=== PATIENT | male | born 1935 | race Asian ===

== ENCOUNTER 2023-04-05 21:17 | Inpatient (IN) | payer MEDICARE ==
[~2023-04-05] VITALS: Ht 165.1 cm; Wt 72.6 kg
--- NOTE | 2023-04-05 21:20 | NUR ---
[id number], from snf, c/o sob 88% on 2lpm via NC, 96% on NRB. PLACED IN BED, AAOX4, DYSPNIEC RR- 24 SATURATING AT 97% WITH 3LIT O2 VIA NC. KNOWN HX OF COPD
[2023-04-05] MEDS ORDERED: ALBUTEROL FS 2.5 MG/3 ML VIAL.NEB NEB ONE (21:30)
[2023-04-05] MEDS ORDERED: methylPREDNISolone SOD SUCC 125 MG/2ML VIAL IV ONE (21:30)
[2023-04-05] MEDS ORDERED: methylPREDNISolone SOD SUCC 125 MG/2ML VIAL ONE (21:30)
--- NOTE | 2023-04-05 21:30 | NUR ---
COVID SWAB COLLECTED, SENT TO LAB
[2023-04-05] MEDS ORDERED: ALBUTEROL FS 2.5 MG/3 ML VIAL.NEB ONE (21:33)
--- NOTE | 2023-04-05 21:35 | NUR ---
TOOL FILER HAND AT BEDSIDE
[2023-04-05] MEDS ORDERED: DILTIAZEM HCL 50 MG IV ONE (21:39)
[2023-04-05] MEDS ORDERED: DILTIAZEM HCL 50 MG IV IV ONE (22:00)
[2023-04-05 22:02] LABS: BASOPHILS # (AUTO) 0.1 K/uL (0.0-0.2); BASOPHILS % (AUTO) 0.4 % (0.0-2.0); EOSINOPHILS % (AUTO) 1.9 % (0.0-6.0); HEMATOCRIT 41 % (39-51); HEMOGLOBIN 13.6 g/dL (13.5-17.5); LYMPHOCYTES # (AUTO) 1.5 K/uL (0.8-4.8); LYMPHOCYTES % (AUTO) 9.9 % (20.0-44.0); MEAN CORPUSCULAR HGB CONC 33 g/dl (31.0-36.0); MEAN CORPUSCULAR VOLUME 97 fL (80-96); MONOCYTES # (AUTO) 1.1 K/uL (0.1-1.30); MONOCYTES % (AUTO) 7.7 % (2.0-12.0); NEUTROPHILS # (AUTO) 11.8 K/uL (1.8-8.9); NEUTROPHILS % (AUTO) 80.1 % (43.0-81.0); PLATELET COUNT (AUTO) 325 K/uL (150-450); RED BLOOD CELL COUNT(AUTO) 4.26 MIL/uL (4.5-6.0); WHITE BLOOD COUNT (AUTO) 14.7 K/uL (4.3-11.0)
[2023-04-05 22:10] LABS: CALCIUM, SERUM 9.3 mg/dL (8.5-10.1); CARBON DIOXIDE 27 mmol/L (21-32); CHLORIDE 103 mmol/L (98-107); CREATININE 1.2 mg/dL (0.6-1.3); GLUCOSE 144 mg/dL (74-106); POTASSIUM 3.8 mmol/L (3.5-5.1); SODIUM SERUM 139 mmol/L (136-145); UREA NITROGEN, BLOOD 17 mg/dL (7-18)
[2023-04-05 22:24] LABS: ALANINE AMINOTRANSFERASE 28 U/L (12-78); ALBUMIN 3.7 g/dL (3.4-5.0); ALKALINE PHOSPHATASE 100 U/L (46-116); ASPARTATE AMINOTRANSFERASE 22 U/L (15-37); BILIRUBIN,DIRECT 0.3 mg/dL (0.0-0.2); TOTAL PROTEIN, SERUM 7.4 g/dL (6.4-8.2)
--- NOTE | 2023-04-05 22:37 | NUR ---
URINE SAMPLE SENT TO LAB
--- NOTE | 2023-04-05 23:10 | NUR ---
REPORT GIVEN TO DANIEL TOMAS ROOM 310-2 FOR OLIVIA
--- NOTE | 2023-04-05 23:16 | NUR ---
MRSA SWAB COLLECTED, SENT TO LAB
[2023-04-05 23:28] LABS: BILIRUBIN,URINE NEGATIVE (NEGATIVE); COLOR,URINE YELLOW (YELLOW); LEUKOCYTE ESTERASE ,URINE NEGATIVE (NEGATIVE); NITRITE, URINE NEGATIVE (NEGATIVE); PH,URINE 5.5 (5.0-8.0); PROTEIN,URINE 2+ mg/dl (NEGATIVE); UGLUCOSE NEGATIVE (NEGATIVE); UROBILINOGEN,URINE 0.2 EU/dL (0.2)
[2023-04-05 23:34] LABS: BACTERIA,URINE Rare /HPF (None Seen); SQUAMOUS EPITHELIAL CELL,UR Few /HPF (None Seen); WBC,URINE 0-2 /HPF (0-3)
[2023-04-05] MEDS ORDERED: AZITHROMYCIN 500 MG in IV D5W 250 ML IV STA (23:46)
[2023-04-06] VITALS (7 sets, daily range): BP systolic 133–158; BP diastolic 75–92
[2023-04-06] MEDS ORDERED: CEFTRIAXONE 1GM BAG (ER ONLY) 1 GM/50 ML PIGGYBACK IV ONE
[2023-04-06] MEDS ORDERED: CEFTRIAXONE 1GM BAG (ER ONLY) 50 ML IV ONE (00:20)
--- NOTE | 2023-04-06 00:52 | NUR ---
Pt transfere to room 310-2 via ACLS protocol.
--- NOTE | 2023-04-06 01:30 | NUR ---
INSTRUCTION ASSISTANT PRINCIPALSEAT NAILER NOTE RECEIVED REPORT FROM THOM ARMIJO. PATIENT CAME TO THE UNIT AT AROUND 0050 VIA STRETCHER, ACCOMPANIED BY 2 ER STAFFS. PER REPORT, PATIENT WAS SENT TO THE HOSPITAL D/T SOB SATURATING AT 88% ON 2LPM VIA NASAL CANNULA. DIRECTED TO ROOM 310-2. PATIENT IS ALERT AND ORIENTED X4. ABLE TO MAKE NEEDS KNOWN. AFEBRILE AND NOT IN ANY FORM OF ACUTE DISTRESS. PLACED ON O2 INHALATION VIA NASAL CANNULA AT 3LPM. EXPLAINED ADMISSION PROCESS WHICH INCLUDES SKIN ASSESSMENT WHICH THE PATIENT AGREED. UPON INSPECTION, PATIENT WAS NOTED WITH NON PITTING EDEMA ON BILATERAL FOOT +2. SKIN IS INTACT AND NO OTHER VISIBLE SKIN ISSUES. BELONGINGS WERE CHECKED TOGETHER WITH ASSIGNED CROSSING WATCHMAN AND PATIENT JUST CAME WITH SHIRT AND WATCH. VITALS TAKEN AND RECORDED. ORIENTED TO ENVIRONMENT. SAFETY MEASURES IN PLACE. KEPT BED IN LOCKED AND IN LOW POSITION. SIDE RAILS UP X2. ADVISED TO USE THE CALL LIGHT WHEN IN NEED OF ASSISTANCE.
[2023-04-06] MEDS ORDERED: ACETAMINOPHEN 325 MG TABLET PO PRN (02:30)
[2023-04-06] MEDS ORDERED: ONDANSETRON HCL/PF 4 MG/2 ML VIAL IVP PRN (02:30)
[2023-04-06] MEDS ORDERED: MAG HYDROX/AL HYDROX/SIMETH 30 ML UDC PO PRN (02:30)
[2023-04-06] MEDS ORDERED: Z GUARD REMEDY 4 OZ OINT TP PRN (02:30)
[2023-04-06] MEDS ORDERED: MAGNESIUM HYDROXIDE 30 ML UDC PO PRN (02:30)
[2023-04-06] MEDS ORDERED: ZOLPIDEM TARTRATE 5 MG TABLET PO PRN (02:30)
[2023-04-06] MEDS ORDERED: IPRATROPIUM NEB FS 0.5 MG/2.5 ML AMPUL.NEB NEB PRN (02:30)
[2023-04-06] MEDS ORDERED: hydrALAZINE HCL IV 20 MG VIAL IV PRN (03:00)
[2023-04-06] MEDS ORDERED: AZITHROMYCIN 500 MG VIAL ONE (03:06)
[2023-04-06] MEDS: methylPREDNISolone SOD SUCC 40 MG/ML VIAL IV SCH ×3 (04:25→21:10)
--- NOTE | 2023-04-06 06:28 | NUR ---
CAFE AIDE CLOSING NOTE PATIENT IN BED, ASLEEP BUT EASY TO AROUSE AND RESPONSIVE. ALERT AND ORIENTED X4. ABLE TO COMMUNICATE NEEDS WITH THE STAFFS. AFEBRILE AND NOT IN ANY FORM OF ACUTE DISTRESS. ON O2 INHALATION VIA NASAL CANNULA AT 2LPM. ON TELE MONITORING WITH CURRENT READING OF A-FIB 101. WITH IV ACCESS ON LAC 18G-SL. MEDICATED ORDERED. ON IV ATB, MONITORED FOR ANY ADVERSE REACTION. SAFETY MEASURES IN PLACE. KEPT BED IN LOCKED AND IN LOW POSITION. SIDE RAILS UP X2. ADVISED TO USE THE CALL LIGHT WHEN IN NEED OF ASSISTANCE. ALL NURSING NEEDS ATTENDED. ENDORSED TO INCOMING SHIFT FOR CONTINUITY OF CARE.
[2023-04-06 06:52] LABS: HEMATOCRIT 43 % (39-51); HEMOGLOBIN 13.9 g/dL (13.5-17.5); LYMPHOCYTES # (AUTO) 0.9 K/uL (0.8-4.8); LYMPHOCYTES % (AUTO) 8.1 % (20.0-44.0); MEAN CORPUSCULAR HGB CONC 32 g/dl (31.0-36.0); MEAN CORPUSCULAR VOLUME 95 fL (80-96); MONOCYTES # (AUTO) 0.1 K/uL (0.1-1.30); MONOCYTES % (AUTO) 0.6 % (2.0-12.0); NEUTROPHILS # (AUTO) 10.5 K/uL (1.8-8.9); NEUTROPHILS % (AUTO) 91.3 % (43.0-81.0); PLATELET COUNT (AUTO) 215 K/uL (150-450); RED BLOOD CELL COUNT(AUTO) 4.54 MIL/uL (4.5-6.0); WHITE BLOOD COUNT (AUTO) 11.5 K/uL (4.3-11.0)
[2023-04-06 07:14] LABS: CALCIUM, SERUM 9.5 mg/dL (8.5-10.1); CREATININE 1.1 mg/dL (0.6-1.3); MAGNESIUM 2.3 mg/dL (1.8-2.4); PHOSPHORUS 3.5 mg/dL (2.5-4.9); POTASSIUM 3.7 mmol/L (3.5-5.1)
--- NOTE | 2023-04-06 07:18 | NUR ---
BUNDLER SEASONAL GREENERY OPENING NOTES RECEIVED PATIENT LYING IN BED, A/OX4, ABLE TO MAKE NEEDS KNOWN, DENIES ANY SOB, ON 02 AT 2LPM VIA NASAL CANNULA, BREATHING IS EVEN AND NOT LABORED, PATIENT HAS NOTED WITH NON PITTING EDEMA ON BILATERAL FOOT +2, SKIN IS INTACT AND NO OTHER VISIBLE SKIN ISSUES. 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 KEPT BED IN LOCKED AND IN LOW POSITION. SIDE RAILS UP X2. CALL LIGHT WITHIN EASY REACH, WILL CONTINUE POC. Addendum: 04/06/23 at 0745 by ROCK BRANDIE PINZON RN BUNDLER SEASONAL GREENERY OPENING NOTES RECEIVED PATIENT LYING IN BED, A/OX4, ABLE TO MAKE NEEDS KNOWN, DENIES ANY SOB, ON 02 AT 2LPM VIA NASAL CANNULA, BREATHING IS EVEN AND NOT LABORED, PATIENT HAS NOTED WITH NON PITTING EDEMA ON BILATERAL FOOT +2, SKIN IS INTACT AND NO OTHER VISIBLE SKIN ISSUES. 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 KEPT BED IN LOCKED AND IN LOW POSITION. SIDE RAILS UP X2. CALL LIGHT WITHIN EASY REACH, WILL CONTINUE POC.
[2023-04-06 07:24] LABS: T4 (THYROXINE) 14.5 ug/dL (4.7-13.3); THYROID STIMULATING HORMONE 1.334 uIU/mL (0.358-3.74)
[2023-04-06] MEDS: IPRATROPIUM NEB FS 0.5 MG/2.5 ML AMPUL.NEB NEB SCH ×3 (07:48→20:14)
[2023-04-06] MEDS: ALBUTEROL FS 2.5 MG/3 ML VIAL.NEB NEB SCH ×3 (07:48→20:14)
[2023-04-06] MEDS: LOSARTAN POTASSIUM 50 MG TABLET PO SCH (08:50)
[2023-04-06] MEDS: FUROSEMIDE 20 MG/2 ML VIAL IV SCH ×2 (08:51→16:47)
[2023-04-06] MEDS: PANTOPRAZOLE 40 MG VIAL IV SCH (08:51)
[2023-04-06] MEDS ORDERED: ENOXAPARIN SODIUM 40 MG/0.4 ML DISP.SYRIN SQ SCH (09:00)
[2023-04-06] MEDS ORDERED: MELA5TAB PO (09:37)
[2023-04-06] MEDS ORDERED: IPRA4AER IH (09:37)
[2023-04-06] MEDS ORDERED: PANT40TA2 PO (09:37)
[2023-04-06] MEDS ORDERED: GABA-532 PO (09:37)
[2023-04-06] MEDS ORDERED: TAMS-12 PO (09:37)
[2023-04-06] MEDS ORDERED: DOCU-141 PO (09:37)
[2023-04-06] MEDS ORDERED: DILT180C66 PO (09:37)
[2023-04-06] MEDS ORDERED: RIVA15TA PO (09:37)
[2023-04-06] MEDS ORDERED: METH5TAB6 PO (09:37)
[2023-04-06] MEDS ORDERED: BUDE10.22 IH (09:37)
[2023-04-06] MEDS ORDERED: FINA5TAB11 PO (09:37)
[2023-04-06] MEDS ORDERED: FURO-145 PO (09:37)
[2023-04-06] MEDS ORDERED: SENN-261 PO (09:38)
[2023-04-06] MEDS ORDERED: IBUP-1955 PO (09:38)
[2023-04-06] MEDS ORDERED: GUAI100S11 PO (09:38)
[2023-04-06] MEDS ORDERED: POLY17PO4 PO (09:38)
[2023-04-06] MEDS ORDERED: ACET-868 PO (09:38)
[2023-04-06] MEDS: METOPROLOL TARTRATE 50 MG TABLET PO SCH ×2 (12:26→17:16)
--- NOTE | 2023-04-06 18:45 | NUR ---
CARD STRIPPER CLOSING NOTES RECEIVED PATIENT LYING IN BED, A/OX4, ABLE TO MAKE NEEDS KNOWN, DENIES ANY SOB, ON 02 AT 2LPM VIA NASAL CANNULA, BREATHING IS EVEN AND NOT LABORED, PATIENT HAS NOTED WITH NON PITTING EDEMA ON BILATERAL FOOT +2, SKIN IS INTACT AND NO OTHER VISIBLE SKIN ISSUES. DENIES ANY PAIN OR DISCOMFORT, PATIENT APPEARS TO BE COMFORTABLE, IV ACCESS ON LAC #18 G AND ON SALIN LOCK, PATENT, INTACT AND FLUSHING WELL, ON COTTON PROGRAM TECHNICIAN, A-FIB CONTROLLED WITH A HEART RATE OF 89 BPM, FALL AND SAFETY MEASURES IN PLACE AND MAINTAINED AT ALL TIME, SCHEDULED MEDICATIONS ADMINISTERED, ALL NEEDS ATTENDED AND ANTICIPATED, WILL ENDORSE POC TO COMPLIANCE ANALYST. Addendum: 04/06/23 at 1856 by ROCK BRANDIE PINZON RN CARD STRIPPER CLOSING NOTES PATIENT IS LYING IN BED, A/OX4, ABLE TO MAKE NEEDS KNOWN, DENIES ANY SOB, ON 02 AT 2LPM VIA NASAL CANNULA, BREATHING IS EVEN AND NOT LABORED, PATIENT HAS NOTED WITH NON PITTING EDEMA ON BILATERAL FOOT +2, SKIN IS INTACT AND NO OTHER VISIBLE SKIN ISSUES. DENIES ANY PAIN OR DISCOMFORT, PATIENT APPEARS TO BE COMFORTABLE, IV ACCESS ON LAC #18 G AND ON SALINE LOCK, PATENT, INTACT AND FLUSHING WELL, ON COTTON PROGRAM TECHNICIAN, A-FIB CONTROLLED WITH A HEART RATE OF 89 BPM, FALL AND SAFETY MEASURES IN PLACE AND MAINTAINED AT ALL TIME, SCHEDULED MEDICATIONS ADMINISTERED, ALL NEEDS ATTENDED AND ANTICIPATED, WILL ENDORSE POC TO COMPLIANCE ANALYST.
--- NOTE | 2023-04-06 19:05 | NUR ---
EMBROIDERY FINISHER OPENING NOTE PATIENT IS RESTING IN BED. HE IS ALERT AND ORIENTED, AO X 4. PT IS TAGALOG AND [place] SPEAKING. HE IS ON 2LPM OXYGEN VIA NC, TOLERATED WELL; NO S/S OF DISTRESS OR SOB. IV ACCESS IS AT HIS L AC, 18 G, SL. FLUSHED WELL WITH 10 CC OF NS. IV SITE IS PATENT AND INTACT. 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 SAFETY MEASURES ARE IN PLACED: BED IN LOWEST AND LOCKED POSITION; SIDE RAILS UP X 2; CALL LIGHT AND TABLE ARE WITHIN REACH. WILL CONTINUE MONITORING THE PT AND PROVIDE THE CARE PT NEEDS.
[2023-04-07] MEDS: METOPROLOL TARTRATE 50 MG TABLET PO SCH ×5 (00:03→23:42)
--- NOTE | 2023-04-07 00:15 | NUR ---
MS RN NOTE PT STATED HE COULD NOT FALL ASLEEP. PRN PO MEDICATION, AMBIEN, ADMINISTERED PER MD ORDER.
[2023-04-07 00:23] VITALS: BP 131/86
[2023-04-07] MEDS: IPRATROPIUM NEB FS 0.5 MG/2.5 ML AMPUL.NEB NEB SCH ×4 (02:13→19:48)
[2023-04-07] MEDS: ALBUTEROL FS 2.5 MG/3 ML VIAL.NEB NEB SCH ×4 (02:13→19:48)
[2023-04-07 04:56] VITALS: BP 121/77
[2023-04-07] MEDS: methylPREDNISolone SOD SUCC 40 MG/ML VIAL IV SCH ×3 (05:08→21:14)
[2023-04-07 06:25] LABS: BASOPHILS % (AUTO) 0.1 % (0.0-2.0); HEMATOCRIT 44 % (39-51); HEMOGLOBIN 14.1 g/dL (13.5-17.5); LYMPHOCYTES # (AUTO) 0.9 K/uL (0.8-4.8); LYMPHOCYTES % (AUTO) 6.5 % (20.0-44.0); MEAN CORPUSCULAR HGB CONC 32 g/dl (31.0-36.0); MEAN CORPUSCULAR VOLUME 97 fL (80-96); MONOCYTES # (AUTO) 0.6 K/uL (0.1-1.30); MONOCYTES % (AUTO) 3.9 % (2.0-12.0); NEUTROPHILS % (AUTO) 89.5 % (43.0-81.0); PLATELET COUNT (AUTO) 220 K/uL (150-450); RED BLOOD CELL COUNT(AUTO) 4.54 MIL/uL (4.5-6.0); WHITE BLOOD COUNT (AUTO) 14.5 K/uL (4.3-11.0)
[2023-04-07 06:38] LABS: CALCIUM, SERUM 9.2 mg/dL (8.5-10.1); CREATININE 1.2 mg/dL (0.6-1.3); MAGNESIUM 2.4 mg/dL (1.8-2.4); PHOSPHORUS 4.2 mg/dL (2.5-4.9); POTASSIUM 3.7 mmol/L (3.5-5.1)
--- NOTE | 2023-04-07 07:19 | NUR ---
GYNECOLOGY TEACHER OPENING NOTE RECEIVED PATIENT IN BED, ALERT AND ORIENTED X 4. PATIENT ON 2LPM OXYGEN AT 2LPM VIA NC, TOLERATED WELL, NO SIGNS AND SYMPTOMS OF DISTRESS NOTED. WITH IV ACCESS ON THE LEFT AC G 18 ON SALINE LOCK, PATENT AND INTACT. WITH GENERAL INTERNAL MEDICINE PHYSICIAN READING CONTROLLED AFIB AT 90BPM. NO COMPLAIN OF CHEST PAIN OR DISCOMFORT AT THIS TIME. SAFETY MEASURES IN PLACE WITH BED IN LOWEST AND LOCKED POSITION, SIDE RAILS UP X 2, WITH CALL LIGHT AND TABLE ARE WITHIN REACH AT ALL TIMES. WILL CONTINUE WITH PLAN OF CARE.
--- NOTE | 2023-04-07 07:33 | NUR ---
UPPER AND BOTTOM LACER HAND CLOSING NOTE PATIENT IS RESTING IN BED. HE IS ALERT AND ORIENTED, AO X 4. PT IS TAGALOG AND GEORGIAN SPEAKING. HE IS ON 2LPM OXYGEN VIA NC, TOLERATED WELL; NO S/S OF DISTRESS OR SOB. IV ACCESS IS AT HIS L AC, 18 G, SL. FLUSHED WELL WITH 10 CC OF NS. IV SITE IS PATENT AND INTACT. 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 SAFETY MEASURES ARE IN PLACED: BED IN LOWEST AND LOCKED POSITION; SIDE RAILS UP X 2; CALL LIGHT AND TABLE ARE WITHIN REACH. ENDORSED NEXT SHIFT NURSE FOR CONTINUING PT CARE.
[2023-04-07 08:28] VITALS: BP 138/79
[2023-04-07] MEDS: PANTOPRAZOLE 40 MG VIAL IV SCH (09:05)
[2023-04-07] MEDS: LOSARTAN POTASSIUM 50 MG TABLET PO SCH (09:06)
[2023-04-07] MEDS: APIXABAN 5 MG TABLET PO SCH ×2 (09:08→17:48)
--- NOTE | 2023-04-07 11:35 | NUR ---
SALES AGENT PROTECTIVE SERVICE NOTE PHYSICAL THERAPY DONE ORDERED, TOLERATED WELL EVEN W/O OXYGEN SATURATING AT 95% ENDORSED
--- NOTE | 2023-04-07 13:06 | NUR ---
COPY OF [employer] AND MEDICARE ID PHOTOCOPIED AND ATTACHED TO CHART.
[2023-04-07 15:56] VITALS: BP 127/77
[2023-04-07 16:17] VITALS: BP_SYST 140; BP_SYST 145; BP_SYST 147; BP_DIAS 91; BP_DIAS 92
--- NOTE | 2023-04-07 16:21 | NUR ---
VIDEO PRODUCTION COORDINATOR NOTE ORTHOSTATIC BP DONE ORDERED. TOLERATED WELL.
--- NOTE | 2023-04-07 19:16 | NUR ---
GERIATRIC CARE MANAGER CLOSING NOTE PATIENT IN BED, ALERT AND ORIENTED X 4. PATIENT ON 2LPM OXYGEN AT 2LPM VIA NC, TOLERATED WELL, NO SIGNS AND SYMPTOMS OF DISTRESS NOTED. WITH IV ACCESS ON THE LEFT AC G 18 ON SALINE LOCK, PATENT AND INTACT. WITH FITNESS COACH READING CONTROLLED AFIB AT 90 BPM. NO COMPLAIN OF CHEST PAIN OR DISCOMFORT AT THIS TIME. SAFETY MEASURES IN PLACE WITH BED IN LOWEST AND LOCKED POSITION, SIDE RAILS UP X 2, WITH CALL LIGHT AND TABLE ARE WITHIN REACH AT ALL TIMES. WITH GOOD DISPOSITION. WILL ENDORSE TO NEXT SHIFT FOR CONTINUITY OF CARE.
--- NOTE | 2023-04-07 19:29 | NUR ---
WATCH ELECTRICIAN OPENING NOTE RECEIVED PATIENT IN BED, ALERT AND ORIENTED X 4.ON 2LPM OXYGEN VIA NC, TOLERATED WELL SAT 97% NO SOB/DISTRESS NOTED,WITH IV ACCESS ON THE LEFT AC G 18 ON SALINE LOCK, PATENT AND INTACT. SAFETY MEASURES IN PLACE WITH BED IN LOWEST AND LOCKED POSITION, SIDE RAILS UP X 2, WITH CALL LIGHT AND TABLE ARE WITHIN REACH AT ALL TIMES. WILL CONTINUE TO MONITOR.
[2023-04-07 20:00] VITALS: BP 147/106
[2023-04-07] MEDS: CEFTRIAXONE 1 G in IV D5W 50 ML IV SCH ×3 (23:42)
[2023-04-08] MEDS: IPRATROPIUM NEB FS 0.5 MG/2.5 ML AMPUL.NEB NEB SCH ×3 (00:48→13:42)
[2023-04-08] MEDS: ALBUTEROL FS 2.5 MG/3 ML VIAL.NEB NEB SCH ×3 (00:48→13:42)
[2023-04-08] MEDS: methylPREDNISolone SOD SUCC 40 MG/ML VIAL IV SCH ×2 (05:25→12:13)
[2023-04-08] MEDS: METOPROLOL TARTRATE 50 MG TABLET PO SCH ×2 (05:27→12:13)
--- NOTE | 2023-04-08 06:26 | NUR ---
COMMANDER INTERNAL AFFAIRS CLOSING NOTE; PATIENT IN BED AWAKED AOX 4,ABLE TO MAKE NEEDS KNOWN,ON 2LPM OXYGEN VIA NC, TOLERATED WELL SAT 98% NO SOB/DISTRESS NOTED,NO COMPLAINED OF PAIN/DISCOMFORT DURING SHIFT,WITH IV ACCESS ON THE LEFT AC G 18 ON SALINE LOCK, PATENT AND INTACT. SAFETY MEASURES IN PLACE WITH BED IN LOWEST AND LOCKED POSITION, SIDE RAILS UP X 2, WITH CALL LIGHT AND TABLE ARE WITHIN REACH AT ALL TIMES. WILL ENDORSED TO NEXT SHIFT.
[2023-04-08 06:35] LABS: CARBON DIOXIDE 30 mmol/L (21-32); CHLORIDE 103 mmol/L (98-107); GLUCOSE 142 mg/dL (74-106); MAGNESIUM 2.3 mg/dL (1.8-2.4); PHOSPHORUS 4.1 mg/dL (2.5-4.9); POTASSIUM 3.6 mmol/L (3.5-5.1); SODIUM SERUM 139 mmol/L (136-145); UREA NITROGEN, BLOOD 31 mg/dL (7-18)
[2023-04-08 06:38] LABS: HEMATOCRIT 40 % (39-51); HEMOGLOBIN 13.2 g/dL (13.5-17.5); LYMPHOCYTES # (AUTO) 0.5 K/uL (0.8-4.8); MEAN CORPUSCULAR HGB CONC 33 g/dl (31.0-36.0); MEAN CORPUSCULAR VOLUME 95 fL (80-96); MONOCYTES # (AUTO) 0.5 K/uL (0.1-1.30); MONOCYTES % (AUTO) 4.1 % (2.0-12.0); NEUTROPHILS % (AUTO) 91.9 % (43.0-81.0); PLATELET COUNT (AUTO) 224 K/uL (150-450); RED BLOOD CELL COUNT(AUTO) 4.19 MIL/uL (4.5-6.0); WHITE BLOOD COUNT (AUTO) 13.1 K/uL (4.3-11.0)
--- NOTE | 2023-04-08 07:25 | NUR ---
MUSIC PUBLICIST OPENING NOTE RECEIVED PATIENT RESTING IN BED. ALERT/ORIENTED X4. ABLE TO MAKE NEEDS KNOWN. ON NASAL CANNULA AT 2LPM, WITH EVEN AND UNLABORED BREATHING, NOT IN ANY FORM OF DISTRESS AT THIS TIME. ON TELE MONITOR, ON SR WITH ATRIAL FIBRILLATION 72 BPM. ON CARDIAC DIET. WITH IV ACCES ON LEFT AC #18G, ON SALINE LOCK, PATENT AND INTACT. AMBULATORY WITH ASSIST WITH FWW. SAFETY PRECAUTIONS IN PLACE: BED LOCKED AND IN LOW POSITION, SIDE RAILS UP X2, CALL LIGHT WITHIN EASY REACH. WILL CONTINUE PLAN OF CARE.
[2023-04-08 08:00] VITALS: BP 172/107
[2023-04-08] MEDS ORDERED: PANTOPRAZOLE 40 MG TABLET.DR PO SCH (09:00)
[2023-04-08] MEDS: APIXABAN 5 MG TABLET PO SCH (09:25)
[2023-04-08] MEDS: LOSARTAN POTASSIUM 50 MG TABLET PO SCH (09:26)
--- NOTE | 2023-04-08 10:05 | NUR ---
SEEN AND EXAMINED BY HOSPITALIST JAMILA WITH DISCHARGE ORDER. CARRIED OUT ORDER AND NOTED. PATIENT AND MADE AWARE OF DISCHARGE ORDER.
[2023-04-08] MEDS ORDERED: APIX5TAB PO (10:08)
[2023-04-08] MEDS ORDERED: ALBUT2 NEB (10:08)
[2023-04-08] MEDS ORDERED: LOSA50TA39 PO (10:08)
[2023-04-08] MEDS ORDERED: IPRA0.2S9 NEB (10:08)
[2023-04-08] MEDS ORDERED: PRED20TA PO (10:08)
[2023-04-08] MEDS ORDERED: METO50TA16 PO (10:08)
[2023-04-08 12:13] VITALS: BP 143/97
--- NOTE | 2023-04-08 13:24 | NUR ---
SUPERVISOR REFRACTORY PRODUCTS NOTES RESIDENT ALERT/ORIENTED X4. ABLE TO MAKE NEEDS KNOWN. ON NASAL CANNULA AT 2 LPM, NOT IN ANY FORM OF DISTRESS. WITH IV ACCESS ON LEFT AC G#18ON SALINE LOCK, PATENT AND INTACT. BLADDER AND BOWEL BOTH CONTINENT. PATIENT USING COMMODE AND URINAL AT BED SIDE. CAN AMBULATE WITH ASSISTANCE. VITAL SIGNS WITHIN NORMAL LIMITS. ALL DUE MEDICATIONS GIVEN, NO ADVERSE REACTION NOTED. DISCHARGE INSTRUCTIONS AND EDUCATION EXPLAINED TO PATIENT AND VERBALIZED UNDERSTANDING. ENDORSEMENT GIVEN TO [facility] RN C/O NARGIS.
--- NOTE | 2023-04-08 14:17 | NUR ---
PHARMACY RETAIL SUPPORT SPECIALIST NOTES RESIDENT WAS PAYABLE REPRESENTATIVE BY EMT'S VIA GURNEY ACCOMPANIED BY FAMILY. PERTINENT DISCHARGE PAPERS HAND OVER TO EMT'S. PATIENT ON STABLE CONDITION, NOT IN ANY FORM DISTRESS.
== END 2023-04-08 14:00 | DRG 193 ==
LOC: ER 21:23 → TELE 22:35
PROVIDERS: ADMIT Nurse Practitioner Acute Care; ATTEND Nurse Practitioner Acute Care
DX: J15.9 Unspecified bacterial pneumonia (principal); I50.31 Acute diastolic (congestive) heart failure; J44.1 Chronic obstructive pulmonary disease with (acute) exacerbation; I11.0 Hypertensive heart disease with heart failure; I48.91 Unspecified atrial fibrillation; Z20.822 Contact with and (suspected) exposure to COVID-19; N40.0 Benign prostatic hyperplasia without lower urinary tract symptoms; E05.90 Thyrotoxicosis, unspecified without thyrotoxic crisis or storm; R27.8 Other lack of coordination; Z79.01 Long term (current) use of anticoagulants; Z79.899 Other long term (current) drug therapy
CPT/HCPCS: 36415; 71045-TC; 76536-TC; 80048-TC; 80061-TC; 80076-TC; 81001; 83605-TC; 83735-TC; 83880; 84100-TC; 84436-TC; 84439-TC; 84443-TC; 84481; 84484-TC; 85025-TC; 85730-TC; 87040-TC; 87081-TC; 93307-TC; 94799-TC; 97116-TC; 97530-TC; A4223; C9113; C9803; G0378; J0456; J0696; J1650; J1940; J2920; J2930; J3490; J7050; J7060